=== PATIENT | male | born 1940 | race Caucasian/White ===

== ENCOUNTER 2017-05-08 11:38 | Day surgery (SDC) | payer BC ==
--- NOTE | 2017-05-08 06:29 | History and Physical Report ---
DATE: 05/08/2017. CHIEF COMPLAINT: This is a patient with a history of an intractable postlaminectomy radiculitis. HISTORY OF PRESENT ILLNESS: He had a spinal cord stimulator trial on April 08, 2017, with 75 to 90 percent pain control. Due to the failure of all therapies and the success of the trial, he presents today for implantation of a permanent system. PAST MEDICAL HISTORY: Chronic peripheral vascular disease, abdominal aortic aneurysm, intractable back pain. PAST SURGICAL HISTORY: Skin cancer tumor removals, aneurysm repair, hernia repair, lumbar spinal fusion, cataract surgery, sinus surgery, coronary artery stent placement. MEDICATIONS ON ADMISSION: To be provided ALLERGIES: Naproxen, aspirin, Advil. FAMILY/PSYCHOSOCIAL HISTORY: Noncontributory. Caffeine. PHYSICAL EXAMINATION: General: Height is 5 feet, 4 inches. Weight is 140 pounds. Vital Signs: Not available. HEENT: Within normal limits. Lungs: Clear. Heart: Regular rate and rhythm. Abdomen: Nontender. Musculoskeletal: Musculoskeletal examination shows diffuse tenderness throughout the lumbar spine. Range of motion produces primary pain into the left lower extremity. Ambulation: No assistive device utilized. Neurologic: Cranial nerves are intact. IMPRESSION: 1. POSTLUMBAR LAMINECTOMY SYNDROME, ICD-10 CODE M96.1. 2. LUMBAR RADICULITIS, ICD-10 CODE M54.16 AND M54.17. PLAN: Due to the failure of all other therapies and the success of the spinal cord stimulator trial, the patient presents today for implantation of a permanent system. The potential risks, side effects, and complications have all been reviewed including nerve tract trauma, dural puncture, spinal trauma, and spinal cord injury. The potential risks, side effects, and complications have been accepted. He has read all of the appropriate information provided by the boom cat operator which also outlines the risks. He has consented and is moving forward with the implant. We will consider today's procedure outpatient, although an overnight stay will be evaluated. JOSH LANDA D.O. Date & Time JOB NUMBER: [id number] cc: Brittany Corbett
[~2017-05-08 11:38] MED LIST: ACETAMINOPHEN 1,000 MG/100 ML BTL IV ONE; CEFAZOLIN 2 Gram 2 GM/50 ML BAG IVPB ONE; FAMOTIDINE 20MG TABLET PO ONE; MECLIZINE 25 MG TABLET PO ONE; METOCLOPRAMIDE 10 MG TABLET PO ONE
[2017-05-08] MEDS ORDERED: FLUMAZENIL 1MG/10ML VIAL IV ONE (14:00)
[2017-05-08] MEDS ORDERED: MIDAZOLAM HCL 2MG/2ML VIAL IV ONE (14:00)
[2017-05-08] MEDS ORDERED: LIDOCAINE 2% MDV (20MG/ML) 20ML VIAL IV ONE (14:00)
[2017-05-08] MEDS ORDERED: EPHEDRINE SULFATE 50 MG/ML ML IV ONE (14:00)
[2017-05-08] MEDS ORDERED: PROPOFOL 10 MG/ML VIAL IV ONE (14:00)
[2017-05-08] MEDS ORDERED: FENTANYL PF 100MCG/2ML VIAL IV ONE (14:00)
--- NOTE | 2017-05-08 16:33 | Operative Note - Ferro ---
DATE OF SURGERY: 05/08/17 PREOPERATIVE DIAGNOSES: 1. POST LUMBAR LAMINECTOMY SYNDROME, ICD-10 CODE = M96.1. 2. LUMBAR RADICULITIS, ICD-10 CODE = M54.16 AND M54.17. OPERATION: 1. FLUOROSCOPICALLY-GUIDED EPIDURAL ACCESS T10/11 RIGHT OF THE MIDLINE. PLACEMENT OF SPINAL CORD STIMULATOR LEAD 1, A [employer] OCTAPOLAR WITH 8 ELECTRODES, MRI COMPATIBLE, POSITIONED RIGHT T8. 2. COMPLEX PROGRAMMING LEAD 1, 20 MINUTES. 3. FLUOROSCOPICALLY-GUIDED EPIDURAL ACCESS T11/12 RIGHT, PLACEMENT OF SPINAL CORD STIMULATOR LEAD 2 A [employer] OCTAPOLAR 8 ELECTRODES, MRI COMPATIBLE, POSITIONED LEFT T8. 4. COMPLEX PROGRAMMING LEAD 2, 20 MINUTES. 5. INCISION, SUBCUTANEOUS DISSECTION, AND ANCHORING OF LEAD 1 AND LEAD 2 TO SUPRASPINOUS FASCIA USING [employer] LOCKING ANCHOR. 6. INCISION, SUBCUTANEOUS DISSECTION, AND CREATION OF A SUBCUTANEOUS POUCH AT RIGHT FLANK ABOVE BELT LINE FOR GENERATOR IDENTIFIED [employer] PROGRAMMABLE RECHARGEABLE. 7. TUNNELING BETWEEN POUCHES, PLACEMENT OF EXTERNAL PORTION OF LEAD 1 AND LEAD 2 INTO GENERATOR POUCH, EACH LEAD INTERFACED TO GENERATOR. 8. PLACEMENT OF GENERATOR POUCH SECURING TO FASCIA WITH NONABSORBABLE SUTURE. PLACEMENT OF LEADS INTO POUCH. CLOSURE OF INCISIONS VICRYL FOR FASCIA AND SUBCUTICULAR VICRYL FOR SKIN. DERMABOND CLOSURE SYSTEM APPROXIMATING EDGES OF THE WOUND. 9. COMPLEX RECOVERY ROOM PROGRAMMING INTERNAL GENERATOR HOME USE, TWO STIMULATORS, 20 MINUTES. SURGEON: JOSH LANDA D.O. ANESTHESIA: LOCAL SEDATION. ANESTHESIA PROVIDER: HAYDE WATERS CRNA. INDICATION: This patient presents with a history of a intractable postlaminectomy radiculitis. Due the failure of all therapies, a stimulator trial was conducted with 75-90% pain control. Due to the failure of all therapies and success of the stimulator trial, he presents today for implantation of a permanent system. PROCEDURE: Intravenous line, vital sign monitoring, IV sedation, prepped, draped sterile technique, patient position prone. The epidural interspace right of the midline at 10/11 and 11/12 both infiltrated. Two standard needles with [id number] into the epidural space. At 10/11, spinal cord stimulator lead 1, a [employer] Octapolar 8 electrodes MRI compatible positioned right of midline T8l. With epidural access at T11/12, standard needle, loss-of- resistance, spinal cord stimulator lead 2, a [employer] Octapolar 8 electrodes MRI compatible, positioned left of midline T8. Complex programming of lead 1 over 20 minutes followed by complex programming of lead 2 over 20 minutes ultimately resulting in patterns of stimulation across the back and into the legs. Patient indicating we were in all of the areas of the pain. He was given the option to implant the system, continue to program, or remove the system; he opted to implant the system. All questions were repeated with the same response. He was then re-sedated. The skin was then infiltrated with local , incision made, and subcutaneous dissection was conducted to the supraspinous fascia. The needles were removed and each lead was anchored to the supraspinous fascia using [employer] [place] with nonabsorbable suture. At the right flank, site picked for the generator, skin infiltrated, incision made, and subcutaneous dissection was conducted to form a pouch of suitable size and depth for the generator. A tunneling tool was used to carry the leads into the generator pouch and then each lead was interfaced to the generator. Antibiotic irrigation and Bovie for hemostasis. The generator was then placed into the pouch and secured to the fascia with nonabsorbable suture. The two leads were then coiled and placed into their own pouch and both incisions were closed Vicryl for fascia and running subcuticular Vicryl for skin. A Dermabond closure approximating the edges of both wounds. He was then transported to the Recovery Room stable showing no side-effects from the procedure or the sedation. When fully awake and alert, complex programming was then performed in the Recovery Room over 20 minutes, re-establishing stimulation and pain control to all of the appropriate areas. He was instructed on the use of the system. He will be kept for standard monitoring protocol and then overnight for observation. DISCHARGE INSTRUCTIONS IN THE MORNIN. The sites will remain clean and dry. Although the Dermabond will allow showering, this should not happen for 12-24 hours. 2. Standard medications resumed including the antibiotic, Levaquin 500 mg once a day for 14 days. If he does not tolerate the antibiotic, he should contact the clinic for substitution. 3. His activities should remain low for the next 3-5 days. The office will contact him in 2-3 to set up an appointment in - for site checks. At that point, he will be cleared for more activities. All other instructions provided, numbers to contact, problems given. He will then be discharged. cc: Dr. Favian Bone JOB NUMBER: [id number] MTDD
[2017-05-08] MEDS ORDERED: LIDOCAINE 1% W/EPI 1:200,000 MPF 30ML SQ ONE (16:50)
[2017-05-08] MEDS ORDERED: BUPIVACAINE 0.5% W/EPI MPF 30 ML VIAL IVP ONE (16:50)
[2017-05-08] MEDS ORDERED: CEFAZOLIN 1G VIAL IM ONE (16:50)
--- NOTE | 2017-05-09 12:39 | RADIOLOGY REPORT ---
EXAM: THORACOLUMBAR SPINE, ONE VIEW HISTORY: SPINAL STIMULATOR IMPLANT. TECHNIQUE: A single AP supine view of the mid to lower thoracic and lumbar portions of the spine were obtained portably. Comparison: Same day intraoperative radiographs. FINDINGS: A dual lead interspinal stimulator is in place with the leads likely entering the spinal canal at the T12 or L1 level, right of midline. The lead tips are at the inferior T7 level. There is diffuse osteopenia. Moderate levoconvex scoliosis is present centered at the L1-L2 level. Multilevel degenerative disk and facet degenerative changes are present. An aortobiiliac stent graft is in place. IMPRESSION: 1. DUAL LEAD INTERSPINAL STIMULATOR IN PLACE, DETAILED ABOVE. 2. MULTILEVEL DEGENERATIVE CHANGES OF THE SPINE ASSOCIATED WITH MODERATE LEVOCONVEX SCOLIOSIS CENTERED AT THE L1-L2 LEVEL. 3. NOT MENTIONED ABOVE IS POSTERIOR FUSION OF L3 AND L4. JOB NUMBER: [id number] MTDD
== END 2017-05-08 16:10 | disposition home or self-care (01) ==
LOC: SUR 11:38 → MEDSURG 14:56 → SUR 16:10
PROVIDERS: ATTEND Pain Medicine Interventional Pain Medicine
DX: M96.1 Postlaminectomy syndrome, not elsewhere classified (principal); M54.16 Radiculopathy, lumbar region; M54.17 Radiculopathy, lumbosacral region; I10 Essential (primary) hypertension; E78.00 Pure hypercholesterolemia, unspecified; J44.9 Chronic obstructive pulmonary disease, unspecified
CPT/HCPCS: 63685; 63650 ×2; 00300; 95972; 72020; J3010; J0690

== ENCOUNTER 2019-01-14 10:59 | Observation (INO) | payer BC ==
--- NOTE | 2019-01-14 07:01 | History and Physical - Ferro ---
CHIEF COMPLAINT/HISTORY OF CHIEF COMPLAINT: This patient presents with a history of intractable post laminectomy radiculopathy. Due to the failure of therapy, he is here for an implanted spinal catheter and infusion trial with Hydromorphone to determine if the implantation of a permanent system can be of any value in pain control. PAST MEDICAL HISTORY: Intractable chronic vascular disease with an abdominal aortic aneurysm and post laminectomy syndrome. PAST SURGICAL HISTORY: Skin cancer, basal cell cancer, aneurysm repair, hernia repair, lumbar spinal fusion, cataract surgery, sinus surgery, and coronary artery stent placement. MEDICATIONS ON ADMISSION: List to be provided. ALLERGIES: None listed. FAMILY/PSYCHOSOCIAL HISTORY: Family history - Noncontributory. Social history - Caffeine. SYSTEMS REVIEW: The patient is appropriate in no acute distress. PHYSICAL EXAMINATION: Height is 5'4", weight is 140. No vital signs. HEENT: Within normal limits. LUNGS: Clear. HEART: Rapid and regular. ABDOMEN: Nontender. MUSCULOSKELETAL: Examination of the musculoskeletal system shows diffuse tenderness throughout the lumbar spine. Range of motion produces pain throughout the low back and extending into both lower extremities. Motor and sensory field evaluation shows sensory changes across the front and back surface of both legs with weakness into both legs. Ambulation - An assistive device is utilized. NEUROLOGIC: Cranial nerves are intact. IMPRESSION: POST LUMBAR LAMINECTOMY SYNDROME, ICD-10 CODE M96.1 WITH RADICULOPATHY, ICD-10 CODE M54.16 AND M54.17. PLAN: The patient is here for an implanted spinal catheter infusion trial using Hydromorphone to determine if the implantation of a permanent system can be of any value in pain control. The procedure will be considered outpatient, although an overnight stay will be evaluated. A possible epidural blood patch will be performed although his hardware fusion may present the procedure. JOB NUMBER: [id number] [facility]
[~2019-01-14 10:59] MED LIST changes: +HYDROMORPHONE PF 2MG/ML AMP 0.008 MG in 0.9 % SODIUM CHLORIDE 10ML VIA 0.996 ML IV ONE; +HYDROMORPHONE PF 2MG/ML AMP 8 MG in 0.9 % SODIUM CHLORIDE 500ML 496 ML IV ONE
[2019-01-14] MEDS ORDERED: CEFAZOLIN 1G VIAL IM ONE (11:00)
[2019-01-14] MEDS ORDERED: 0.9 % SODIUM CHLORIDE 10 ML VIAL IVP ONE (11:00)
[2019-01-14] MEDS ORDERED: FENTANYL PF 100MCG/2ML VIAL IV ONE (11:00)
[2019-01-14] MEDS ORDERED: CAFFEINE/SODIUM BENZOATE 250MG/ML 2ML VIAL IVP ONE (11:00)
[2019-01-14] MEDS ORDERED: PROPOFOL 10 MG/ML VIAL IV ONE (11:00)
[2019-01-14] MEDS ORDERED: LIDOCAINE 1% W/EPI 1:200,000 MPF 30ML SQ ONE (11:00)
[2019-01-14] MEDS ORDERED: LIDOCAINE 2% MDV (20MG/ML) 20ML VIAL IV ONE (11:00)
[2019-01-14] MEDS ORDERED: BUPIVACAINE 0.5% W/EPI MPF 30 ML VIAL IVP ONE (11:00)
[2019-01-14] MEDS ORDERED: MIDAZOLAM HCL 2MG/2ML VIAL IV ONE (11:00)
[2019-01-14] MEDS ORDERED: DIPHENHYDRAMINE HCL 50 MG/ML VIAL IVP PRN ×2 (15:06)
[2019-01-14] MEDS ORDERED: HYDROMORPHONE HCL 2 MG/ML VIAL IM PRN ×2 (15:06)
[2019-01-14] MEDS ORDERED: DIPHENHYDRAMINE HCL 25 MG CAPSULE PO PRN ×2 (15:06)
[2019-01-14] MEDS ORDERED: SENNOSIDES/DOCUSATE SODIUM UD CAPSULE PO PRN ×2 (15:06)
[2019-01-14] MEDS ORDERED: HYDROCODONE/APAP 7.5/325MG TABLET PO PRN (15:06)
[2019-01-14] MEDS ORDERED: METOCLOPRAMIDE 10 MG TABLET PO PRN (15:06)
[2019-01-14] MEDS ORDERED: ACETAMINOPHEN 325 MG TAB PO PRN ×2 (15:06)
[2019-01-14] MEDS ORDERED: OXYCODONE/APAP 10MG-325MG TABLET PO PRN ×2 (15:06)
[2019-01-14] MEDS ORDERED: METOCLOPRAMIDE HCL 10 MG/2 ML VIAL IVP PRN (15:06)
[2019-01-14] MEDS ORDERED: NALOXONE 0.4 MG/1 ML VIAL IVP PRN (15:06)
[2019-01-14] MEDS ORDERED: AL HYDROX/MAG HYDROX 30ML UD PO PRN (15:06)
[2019-01-14] MEDS ORDERED: PATIENT OWN MED: PROAIR HFA INH PRN (15:10)
[2019-01-14] MEDS: LISINOPRIL 10 MG TABLET PO SCH (15:37)
[2019-01-14] MEDS: HYDROCODONE/APAP 7.5/325MG TABLET PO PRN ×2 (15:38→22:05)
[2019-01-14] MEDS: SERTRALINE HCL 50 MG TABLET PO SCH (15:38)
[2019-01-14] MEDS: ALBUTEROL SULFATE (0.083%) 2.5 MG/3 ML NEB INH SCH ×2 (17:15→21:18)
[2019-01-14] MEDS: BREO (FLUTICASONE/VILANTEROL) 200MCG/25MCG INHALER INH SCH (21:20)
[2019-01-14] MEDS: TAMSULOSIN HCL 0.4 MG CAP.ER.24H PO SCH (22:00)
[2019-01-14] MEDS: ATORVASTATIN 20 MG TABLET PO SCH (22:00)
[2019-01-14] MEDS: CEFAZOLIN 2 Gram 2 GM/50 ML BAG IVPB SCH (22:00)
[2019-01-14] MEDS: TEMAZEPAM 15 MG CAPSULE PO PRN (22:04)
[2019-01-15] MEDS: HYDROCODONE/APAP 7.5/325MG TABLET PO PRN ×5 (00:40→20:42)
[2019-01-15] MEDS: TEMAZEPAM 15 MG CAPSULE PO PRN ×2 (00:41→22:00)
[2019-01-15] MEDS: CEFAZOLIN 2 Gram 2 GM/50 ML BAG IVPB SCH ×2 (05:46→14:44)
[2019-01-15] MEDS: LORAZEPAM 0.5 MG TABLET PO PRN ×2 (07:16→14:43)
[2019-01-15] MEDS: PREDNISONE 10 MG TAB PO SCH (08:08)
[2019-01-15] MEDS: LISINOPRIL 10 MG TABLET PO SCH (09:15)
[2019-01-15] MEDS: SERTRALINE HCL 50 MG TABLET PO SCH (09:15)
[2019-01-15] MEDS: ALBUTEROL SULFATE (0.083%) 2.5 MG/3 ML NEB INH SCH ×3 (09:22→21:40)
[2019-01-15] MEDS: RINGERS SOLUTION,LACTATED 1,000 ML IV SCH ×4 (14:51→23:25)
--- NOTE | 2019-01-15 17:11 | Operative Note ---
DATE OF SURGERY: 01/14/19 PREOPERATIVE DIAGNOSES: POST LUMBAR LAMINECTOMY SYNDROME, ICD-10 CODE = M96.1 WITH RADICULOPATHY, ICD- 10 CODE = M54.16 AND M54.17. OPERATION: 1. FLUOROSCOPICALLY-GUIDED ACCESS SPINAL SPACE AT L3-4. PLACEMENT OF THIN- WALLED SPINAL CATHETER POSITIONED MIDLINE T11-12. 2. DIAGNOSTIC MYELOGRAPHY WITH RADIOLOGIC SUPERVISION INTERPRETATION. 3. BOLUS OPIOID SPINAL SPACE 0.002 MG. 4. INCISION, SUBCUTANEOUS DISSECTION AND ANCHORING OF SPINAL CATHETER TO SUPRASPINOUS FASCIA WITH A [employer] LOCKING ANCHOR AND NONABSORBABLE SUTURE. 5. INCISION, SUBCUTANEOUS DISSECTION, AND CREATION OF SUBCUTANEOUS POUCH AT LEFT POSTERIOR GLUTEAL MARGIN ULTIMATELY FOR PLACEMENT OF PUMP FORMATION OF SMALL SUBCUTANEOUS POUCH. 6. TUNNELING BETWEEN MIDLINE SPINAL CATHETER LOCATION TO LEFT POSTERIOR GLUTEAL MARGIN POUCH EXTENDING SPINAL CATHETER INTO POUCH. INTERFACE SPINAL CATHETER WITH CONNECTOR AND SECOND CATHETER COMPONENT. 7. TUNNELING SECOND CATHETER COMPONENT 6 CM SUPERIOR EXITING SKIN. 8. INTERFACE EXTERNAL CATHETER TO EXTERNAL PUMP SET TO DELIVER HYDROMORPHONE AT 0.04 MG A DAY. 9. APPROPRIATE DRESSINGS PLACED. NO EPIDURAL BLOOD PATCH, ABORTED BECAUSE OF POOR ANATOMY. EXTERNAL PUMP SET TO DELIVER HYDROMORPHONE WAS INITIATED. SURGEON: JOSH LANDA D.O. ANESTHESIA: LOCAL SEDATION. ANESTHESIA PROVIDER: HAYDE WATERS CRNA INDICATION: This patient presents with a history of intractable post lumbar laminectomy radiculopathy. Due to failure of all therapies, he is here for an implanted spinal catheter infusion trial with Hydromorphone to determine if the implantation of a permanent system can be of any value in pain control. PROCEDURE: Intravenous line, vital sign monitoring, IV sedation, prepped and draped sterile technique. Patient position prone. Under imaging, the spinal fusion was marked, decompression laminectomy marked, rotational scoliosis marked. The skin at L3-4 infiltrated then using AP and lateral imaging in a paramedian approach, a 20-gauge spinal needle inserted into the spinal space on lateral imaging. With CSF flow, a thin-walled spinal catheter was advanced midline under imaging and positioned T11-12. Diagnostic myelography performed, flow characteristics were appropriate for this space. No unusual response on part of the patient and appropriate flow characteristics visualized. With this bolus of Hydromorphone at 0.002 mg given into the spinal space, the catheter was clamped to stop CSF leak. Skin above and below the needle infiltrated, incision made, and subcutaneous dissection was conducted to the supraspinous fascia. The needle was removed and the catheter was anchored to the supraspinous fascia with an anchoring device and nonabsorbable suture. There was still CSF from the catheter. The left posterior gluteal margin was marked, infiltrated, incision made, and subcutaneous dissection was conducted to form a small pouch. A tunneling tool was then used to carry the spinal catheter into the small pouch and then the spinal catheter was interfaced with a second catheter component within the pouch by way of a connector. The second catheter component was then tunneled 6 cm superior exiting the skin. The external catheter was then interfaced to an external pump, which was set to deliver Hydromorphone at 0.04 mg a day. The left posterior gluteal incision was closed with a running nylon. The midline catheter incision was closed with STRATAFIX suture 2-0 fascia, 3-0 skin. 4x4s and OpSite dressing were then used to secure the catheter and all connections under sterile dressing. The external catheter had been interfaced to an external pump, which was running at 0.04 mg a day. No epidural blood patch was performed because of the extensive surgery and abnormalities of the anatomy. He was transported to the Recovery Room flat, pillow under head and knees. He will be kept flat for 4, slowly elevated for 1. He will be given intravenous caffeine as a prophylactic measure against the headache. He will be monitored overnight and then discharged in the morning. Currently, he is stable. There are no unusual movements. No unusual pain. He had full functionality of extremities. DISCHARGE INSTRUCTIONS IN THE MORNIN. Sites remain clean and dry. No showering or bathing in any way that would disrupt dressings. If it happens, contact the clinic. 2. Standard medications resumed including the antibiotic Levaquin. He will take 500 mg once a day for 14 days. 3. The trial is scheduled for 14 days. During this period of time, we will schedule three increases. At the end of the trial period, we will either remove the implanted catheter or implant the pump interfacing it to the catheter. All other instructions provided, numbers to contact, problems given. He will then be prepared for discharge in the morning. cc: Dr. Favian Bone JOB NUMBER: [id number] [facility]
[2019-01-15] MEDS: BREO (FLUTICASONE/VILANTEROL) 200MCG/25MCG INHALER INH SCH (21:40)
[2019-01-15] MEDS: ATORVASTATIN 20 MG TABLET PO SCH (22:00)
[2019-01-15] MEDS: TAMSULOSIN HCL 0.4 MG CAP.ER.24H PO SCH (22:00)
[2019-01-16] MEDS: HYDROCODONE/APAP 7.5/325MG TABLET PO PRN ×5 (05:35→23:04)
[2019-01-16] MEDS: SERTRALINE HCL 50 MG TABLET PO SCH (10:19)
[2019-01-16] MEDS: PREDNISONE 10 MG TAB PO SCH (10:20)
[2019-01-16] MEDS: LISINOPRIL 10 MG TABLET PO SCH (10:20)
[2019-01-16] MEDS: ALBUTEROL SULFATE (0.083%) 2.5 MG/3 ML NEB INH SCH ×3 (10:24→23:12)
[2019-01-16] MEDS: POLYETHYLENE GLY 17 GM PACKET PO SCH (11:19)
--- NOTE | 2019-01-16 11:49 | Consult ---
Consult Order Detail - Reason for Consult Consult Date: 01/16/19 Consult Order Detail: Urinary retention s/p pain pump placement. Pt has PMH TURP and prolong need for alvarez catheter in the past. Sees Dr Mclean urology. - Chief Complaint Chief Complaint: POST LUMBAR LAMINECTOMY HPI Consult - General Complaint: urinary retention - History of Present Illness Admitting Diagnosis: urinary retention post-surgery ROS - Respiratory Respiratory: Reports: Wheezes - Genitourinary Genitourinary: Reports: Retention, Other (h/o BPH req TURP) Past Medical History - SOCIAL HISTORY Smoking Status: Former smoker Alcohol Use: None - RESPIRATORY Hx Respiratory Disorders: Yes Hx Asthma: Yes Hx COPD: Yes (RESPIRATORY STATUS FAIR NO RECENT HOSPITALIZATIONS) Hx Dyspnea: Yes Comment:: prednisone dependent - CARDIOVASCULAR Hx Cardio Disorders: Yes Hx Edema: Yes (rarely) Hx Hypertension: Yes (ON MEDS GOOD CONTROL) Comment:: HYPERLIPIDEMIA found AAA on MRI for back issues STABLE - NEURO Hx Neuro Disorders: No - GI Hx GI Disorders: No - Hx Genitourinary Disorders: Yes Hx Bladder Problem: Yes (ON FLOMAX) Hx Kidney Stones: Yes (hx of; ? possible small stones in kidneys) Hx Prostate Problems: Yes (h/o BPH with TURP) Hx UTI: Yes (HX OF) - ENDOCRINE Hx Endocrine Disorders: No - MUSCULOSKELETAL Hx Musculoskeletal Disorders: Yes Hx Arthritis: Yes (DDD) - PSYCH Hx Psych Problems: Yes Hx Anxiety: Yes Hx Depression: Yes Hx Suicide Attempt: Yes (2 YEARS AGO) Major Depressive Episode: Yes - HEMATOLOGY/ONCOLOGY Hx Hematology/Oncology Disorders: Yes Hx Cancer: Yes (skin; face) Family Medical History Hx Cancer: Mother H&P Meds - Home Medications and Allergies Allergies Allergy/AdvReac Type Severity Reaction Status Date / Time aspirin Allergy SHORTNESS Verified 05/02/17 13:28 OF BREATH NSAIDS (Non-Steroidal Allergy SHORTNESS Verified 05/02/17 13:28 Anti-Inflamma OF BREATH Physical Exam - Vital Signs Vital Signs: Vital Signs - Last 24 Hrs Temp Pulse Pulse Pulse Resp BP Pulse Ox 01/16/19 10:25 81 18 95 01/16/19 05:00 97.7 F 86 18 176/110 97 01/15/19 21:47 77 18 97 01/15/19 21:43 79 18 97 01/15/19 21:00 97.9 F 78 18 163/106 94 L 01/15/19 17:00 97.6 F 83 18 153/85 93 L 01/15/19 15:51 80 18 97 01/15/19 13:00 84 16 138/87 95 - General General Appearance: Alert, Oriented x3, Cooperative, No acute distress - Head Head exam: Atraumatic - Eye Eye exam: Normal appearance - ENT ENT exam: Mucous membranes moist - Neck Neck exam: Normal inspection - Respiratory Respiratory exam: Decreased breath sounds, Wheezes - GI/Abdominal GI/Abdominal exam: Normal bowel sounds Assessment and Plan - Assessment and Plan (1) Urinary retention Current Visit: Yes Status: Acute Base Code: R33.9 - RETENTION OF URINE, UNSPECIFIED Comment: 01/16/19 -S/P pain pump placement with spinal dilaudid bolus and infusion by Dr Kincaid -post op urinary retention req alvarez placement -Spoke with miguel Jacob to manage urinary retention for the next 24 hours, POC d/c with or without alvarez based on 24 ISC trial and increase in flomax from 0.4mg to 0.8mg (pt BP elevated and should tolerate the increase). Alvarez was removed 9am, pt not successful to urinate on his own yet. P to stand and attempt to urinate q2 hours while awake and ISC q 6 hours if bladder scan greater than 400cc. If after 24 hours, pt is not able to urinate on his own, alvarez will be replaced and pt will f/u with Dr Vinay lynne (this is his current urologist). PMH of BPH requiring TURP and 5 months of alvarez catheter placement after procedure. Care Coodinator to set up f/u for urology. Pt and updated with POC.
[2019-01-16] MEDS: TAMSULOSIN HCL 0.4 MG CAP.ER.24H PO SCH (13:23)
[2019-01-16] MEDS: ATORVASTATIN 20 MG TABLET PO SCH (23:05)
[2019-01-16] MEDS: TEMAZEPAM 15 MG CAPSULE PO PRN (23:07)
[2019-01-16] MEDS: BREO (FLUTICASONE/VILANTEROL) 200MCG/25MCG INHALER INH SCH (23:12)
[2019-01-17] MEDS: HYDROCODONE/APAP 7.5/325MG TABLET PO PRN ×2 (04:26→07:25)
[2019-01-17] MEDS: SERTRALINE HCL 50 MG TABLET PO SCH (09:36)
[2019-01-17] MEDS: LISINOPRIL 10 MG TABLET PO SCH (09:37)
[2019-01-17] MEDS: TAMSULOSIN HCL 0.4 MG CAP.ER.24H PO SCH (09:37)
[2019-01-17] MEDS: LORAZEPAM 0.5 MG TABLET PO PRN (09:37)
[2019-01-17] MEDS: ALBUTEROL SULFATE (0.083%) 2.5 MG/3 ML NEB INH SCH (10:10)
[2019-01-17] MEDS: POLYETHYLENE GLY 17 GM PACKET PO SCH (10:15)
[2019-01-17] MEDS: PREDNISONE 10 MG TAB PO SCH (10:17)
--- NOTE | 2019-01-17 10:38 | Physician Progress Note ---
Subjective - Date Date of Physician Progress Note: 01/17/19 - Subjective Subjective Comment: pt has been able to urinate on his own since the late evening, assurance services manager health care. PVR scan shows 100cc or less. Pt denies sensation of full bladder and has a urology follow up already scheduled. Pt to see Dr Kincaid saturday for follow up on pain pump placement. Nursing staff educating pt to go to ER if he is unable to urinate in 18-24 hours or has severe onset of lower abd pain/distention. Dr Kincaid d/robert completed Objective - Vital Signs Vital Signs: Vital Signs - Last 24 Hrs Temp Pulse Pulse Pulse Resp BP BP 01/17/19 07:55 72 20 01/17/19 04:24 98.7 F 82 16 120/82 01/16/19 23:16 98.0 F 77 16 140/90 01/16/19 23:14 78 16 01/16/19 17:08 78 18 01/16/19 17:00 99.0 F 87 18 128/75 01/16/19 13:00 97.9 F 81 16 148/91 Pulse Ox 01/17/19 07:55 01/17/19 04:24 94 L 01/16/19 23:16 99 01/16/19 23:14 96 01/16/19 17:08 99 01/16/19 17:00 98 01/16/19 13:00 93 L - General General Appearance: Alert, Oriented x3, Cooperative, No acute distress - Head Head exam: Atraumatic - Eye Eye exam: Normal appearance - ENT ENT exam: Mucous membranes moist - Neck Neck exam: Normal inspection - Respiratory Respiratory exam: Decreased breath sounds, Wheezes - GI/Abdominal GI/Abdominal exam: Normal bowel sounds Assessment and Plan - Assessment and Plan (1) Urinary retention Current Visit: Yes Status: Acute Base Code: R33.9 - RETENTION OF URINE, UNSPECIFIED Comment: 01/16/19 -S/P pain pump placement with spinal dilaudid bolus and infusion by Dr Kincaid -post op urinary retention req alvarez placement -Spoke with miguel Jacob to manage urinary retention for the next 24 hours, POC d/c with or without alvarez based on 24 ISC trial and increase in flomax from 0.4mg to 0.8mg (pt BP elevated and should tolerate the increase). Alvarez was removed 9am, pt not successful to urinate on his own yet. P to stand and attempt to urinate q2 hours while awake and ISC q 6 hours if bladder scan greater than 400cc. If after 24 hours, pt is not able to urinate on his own, alvarez will be replaced and pt will f/u with Dr Vinay lynne (this is his current urologist). PMH of BPH requiring TURP and 5 months of alvarez catheter placement after procedure. Care Coodinator to set up f/u for urology. Pt and updated with POC. DVT/PE Assessment - Active Medicaitons Current Medications: Current Medications Acetaminophen (Tylenol 325mg) 325 mg PO Q4H PRN PRN Reason: PAIN/HEADACHE/TEMP>100.5 Last Admin: 01/16/19 11:16 Dose: 325 mg Acetaminophen (Tylenol 325mg) 650 mg PO Q4H PRN PRN Reason: PAIN/HEADACHE/TEMP>100.5 Hydrocodone Bitart/Acetaminophen ([place] 7.5mg/325mg) 1 each PO Q4H PRN PRN Reason: PAIN - MILD TO MODERATE (1-7) Last Admin: 01/17/19 07:25 Dose: 1 each Al Hydroxide/Mg Hydroxide (Maalox) 30 ml PO Q4H PRN PRN Reason: INDIGESTION/HEARTBURN Albuterol Sulfate (Albuterol Sulfate) 2.5 mg INH TID [facility] Last Admin: 01/17/19 10:10 Dose: 2.5 mg Atorvastatin Calcium (Lipitor) 20 mg PO QHS [facility] Last Admin: 01/16/19 23:05 Dose: 20 mg Diphenhydramine HCl (Benadryl) 25 mg IVP Q4H PRN PRN Reason: ITCHING Diphenhydramine HCl (Benadryl) 50 mg IVP Q4H PRN PRN Reason: ITCHING Diphenhydramine HCl (Benadryl Capsule) 25 mg PO Q4H PRN PRN Reason: ITCHING Diphenhydramine HCl (Benadryl Capsule) 50 mg PO Q4H PRN PRN Reason: ITCHING Lactated Ringer's () 1,000 mls @ 125 mls/hr IV .Q8H [facility] Last Admin: 01/15/19 23:25 Dose: Not Given Lisinopril (Zestril) 10 mg PO DAILY [facility] Last Admin: 01/17/19 09:37 Dose: 10 mg Lorazepam (Ativan) 0.5 mg PO BID PRN PRN Reason: ANXIETY Last Admin: 01/17/19 09:37 Dose: 0.5 mg Metoclopramide HCl (Reglan) 10 mg PO Q6H PRN PRN Reason: NAUSEA Metoclopramide HCl (Reglan) 10 mg IVP Q6H PRN PRN Reason: NAUSEA Naloxone HCl (Narcan) 0.4 mg IVP .ONCE PRN PRN Reason: DIFFICULTY IN BREATHING Patient Own Med: (Proair Hfa) 2 each INH Q4H PRN PRN Reason: SHORTNESS OF BREATH Polyethylene Glycol (Miralax) 17 gm PO DAILY [facility] Last Admin: 01/17/19 10:15 Dose: 17 gm Prednisone (Prednisone 10mg) 10 mg PO DAILYWM [facility] Last Admin: 01/17/19 10:17 Dose: 10 mg Senna/Docusate Sodium (Senna Plus) 2 each PO BID PRN PRN Reason: CONSTIPATION Senna/Docusate Sodium (Senna Plus) 4 each PO BID PRN PRN Reason: CONSTIPATION Sertraline HCl (Zoloft) 50 mg PO DAILY [facility] Last Admin: 01/17/19 09:36 Dose: 50 mg Tamsulosin HCl (Flomax) 0.8 mg PO DAILY [facility] Last Admin: 01/17/19 09:37 Dose: 0.8 mg Temazepam (Restoril) 15 mg PO QHS PRN PRN Reason: SLEEP Last Admin: 01/15/19 00:41 Dose: 15 mg Temazepam (Restoril) 30 mg PO QHS PRN PRN Reason: SLEEP Last Admin: 01/16/19 23:07 Dose: 30 mg
--- NOTE | 2019-01-17 10:39 | Consult ---
Consult Order Detail - Reason for Consult Consult Date: 01/17/19 Consult Order Detail: pt has been able to urinate on his own since the late evening, lacquer coater. PVR scan shows 100cc or less. Pt denies sensation of full bladder and has a urology follow up already scheduled. Pt to see Dr Kincaid saturday for follow up on pain pump placement. Nursing staff educating pt to go to ER if he is unable to urinate in 18-24 hours or has severe onset of lower abd pain/distention. Dr Kincaid d/c completed - Chief Complaint Chief Complaint: POST LUMBAR LAMINECTOMY HPI Consult - History of Present Illness Admitting Diagnosis: urinary retention ROS - Respiratory Respiratory: Reports: Wheezes - Genitourinary Genitourinary: Reports: Retention, Other (h/o BPH req TURP) Past Medical History - SOCIAL HISTORY Smoking Status: Former smoker Alcohol Use: None - RESPIRATORY Hx Respiratory Disorders: Yes Hx Asthma: Yes Hx COPD: Yes (RESPIRATORY STATUS FAIR NO RECENT HOSPITALIZATIONS) Hx Dyspnea: Yes Comment:: prednisone dependent - CARDIOVASCULAR Hx Cardio Disorders: Yes Hx Edema: Yes (rarely) Hx Hypertension: Yes (ON MEDS GOOD CONTROL) Comment:: HYPERLIPIDEMIA found AAA on MRI for back issues STABLE - NEURO Hx Neuro Disorders: No - GI Hx GI Disorders: No - Hx Genitourinary Disorders: Yes Hx Bladder Problem: Yes (ON FLOMAX) Hx Kidney Stones: Yes (hx of; ? possible small stones in kidneys) Hx Prostate Problems: Yes (h/o BPH with TURP) Hx UTI: Yes (HX OF) - ENDOCRINE Hx Endocrine Disorders: No - MUSCULOSKELETAL Hx Musculoskeletal Disorders: Yes Hx Arthritis: Yes (DDD) - PSYCH Hx Psych Problems: Yes Hx Anxiety: Yes Hx Depression: Yes Hx Suicide Attempt: Yes (2 YEARS AGO) Major Depressive Episode: Yes - HEMATOLOGY/ONCOLOGY Hx Hematology/Oncology Disorders: Yes Hx Cancer: Yes (skin; face) Family Medical History Hx Cancer: Mother H&P Meds - Home Medications and Allergies Previous Rx's Medication Instructions Recorded Tamsulosin HCl [Flomax] 0.8 mg PO DAILY #15 cap.er.24h 01/17/19 Allergies Allergy/AdvReac Type Severity Reaction Status Date / Time aspirin Allergy SHORTNESS Verified 05/02/17 13:28 OF BREATH NSAIDS (Non-Steroidal Allergy SHORTNESS Verified 05/02/17 13:28 Anti-Inflamma OF BREATH Physical Exam - Vital Signs Vital Signs: Vital Signs - Last 24 Hrs Temp Pulse Pulse Pulse Resp BP BP 01/17/19 07:55 72 20 01/17/19 04:24 98.7 F 82 16 120/82 01/16/19 23:16 98.0 F 77 16 140/90 01/16/19 23:14 78 16 01/16/19 17:08 78 18 01/16/19 17:00 99.0 F 87 18 128/75 01/16/19 13:00 97.9 F 81 16 148/91 Pulse Ox 01/17/19 07:55 01/17/19 04:24 94 L 01/16/19 23:16 99 01/16/19 23:14 96 01/16/19 17:08 99 01/16/19 17:00 98 01/16/19 13:00 93 L - General General Appearance: Alert, Oriented x3, Cooperative, No acute distress - Head Head exam: Atraumatic - Eye Eye exam: Normal appearance - ENT ENT exam: Mucous membranes moist - Neck Neck exam: Normal inspection - Respiratory Respiratory exam: Decreased breath sounds, Wheezes - Cardiovascular Cardiovascular Exam: Regular rate, Normal rhythm Peripheral Pulses: 2+: Radial (R), Radial (L), Dorsalis Pedis (R), Dorsalis Pedis (L) - GI/Abdominal GI/Abdominal exam: Normal bowel sounds Assessment and Plan - Assessment and Plan (1) Urinary retention Current Visit: Yes Status: Acute Base Code: R33.9 - RETENTION OF URINE, UNSPECIFIED Comment: 01/16/19 -S/P pain pump placement with spinal dilaudid bolus and infusion by Dr Kincaid -post op urinary retention req alvarez placement -Spoke with miguel Jacob to manage urinary retention for the next 24 hours, POC d/c with or without alvarez based on 24 ISC trial and increase in flomax from 0.4mg to 0.8mg (pt BP elevated and should tolerate the increase). Alvarez was removed 9am, pt not successful to urinate on his own yet. P to stand and attempt to urinate q2 hours while awake and ISC q 6 hours if bladder scan greater than 400cc. If after 24 hours, pt is not able to urinate on his own, alvarez will be replaced and pt will f/u with Dr Mclean outpt (this is his current urologist). PMH of BPH requiring TURP and 5 months of alvarez catheter placement after procedure. Care Coodinator to set up f/u for urology. Pt and updated with POC.
--- NOTE | 2019-01-17 19:41 | RADIOLOGY REPORT ---
EXAM: SPINE, 1 VIEW HISTORY: STATUS POST PUMP TRIAL. TECHNIQUE: Single frontal view of the thoracolumbar spine. COMPARISON: Spine radiograph from 05/08/2017. FINDINGS: New tubing is seen partially superimposing the left iliac wing, may represent component of pump device. Device otherwise difficult to localize due to additional overlying structures. Please refer to the operative report for additional details. Similar appearance of stimulator device since comparison study with leads in the lower thoracic region. Lower lumbar spine fusion hardware is present. Aortoiliac stent graft is noted as well. Multilevel lumbar degenerative changes with thoracolumbar levocurvature. IMPRESSION: ABOVE. JOB NUMBER: [id number] MTDD
== END 2019-01-17 11:01 | disposition home or self-care (01) ==
LOC: SUR 10:59 → MEDSURG 15:10
PROVIDERS: ADMIT Pain Medicine Interventional Pain Medicine; ATTEND Pain Medicine Interventional Pain Medicine
DX: M96.1 Postlaminectomy syndrome, not elsewhere classified (principal); M54.16 Radiculopathy, lumbar region; M54.17 Radiculopathy, lumbosacral region; I10 Essential (primary) hypertension; E78.00 Pure hypercholesterolemia, unspecified; J44.9 Chronic obstructive pulmonary disease, unspecified
CPT/HCPCS: 62350; 62362; 01936; 72020; 94640 ×6; 94664; G0378 ×3; J7512 ×3; J3010; J0690 ×2; J3490 ×4; J1170; J7040; J7613

== ENCOUNTER → 2019-01-21 | Day surgery (SDC) | payer BC ==
[~2019-01-21] MED LIST changes: -ACETAMINOPHEN 1,000 MG/100 ML BTL IV ONE; -CEFAZOLIN 2 Gram 2 GM/50 ML BAG IVPB ONE; -FAMOTIDINE 20MG TABLET PO ONE; +FENTANYL CITRATE/PF 5,000 MCG, BUPIVACAINE 0.5% PF 20 MG in 0.9 % SODIUM CHLORIDE 500ML... IJ ONE; +FENTANYL PF 100MCG/2ML VIAL IVP ONE; -HYDROMORPHONE PF 2MG/ML AMP 0.008 MG in 0.9 % SODIUM CHLORIDE 10ML VIA 0.996 ML IV ONE; -HYDROMORPHONE PF 2MG/ML AMP 8 MG in 0.9 % SODIUM CHLORIDE 500ML 496 ML IV ONE; -MECLIZINE 25 MG TABLET PO ONE; -METOCLOPRAMIDE 10 MG TABLET PO ONE
--- NOTE | 2019-01-21 08:01 | History and Physical - Ferro ---
CHIEF COMPLAINT/HISTORY OF CHIEF COMPLAINT: This patient presents with a history of post lumbar laminectomy syndrome with an intractable low back and leg pain. He is in progress with an implanted spinal catheter infusion trial using Hydromorphone. Because of side effects including itching as well as urinary retention he is here for a medication change. PAST MEDICAL HISTORY: Unchanged. PAST SURGICAL HISTORY: Unchanged. MEDICATIONS ON ADMISSION: List to be provided. FAMILY/PSYCHOSOCIAL HISTORY: Social history - Unchanged. Family history - Unchanged. SYSTEMS REVIEW: The patient is appropriate in no acute distress. PHYSICAL EXAMINATION: Unchanged. Evaluation shows the dressings for the implanted catheter trial to be intact. The external pump is currently off, but the connections are intact. NEUROLOGIC: Cranial nerves are intact. IMPRESSION: POST LUMBAR LAMINECTOMY SYNDROME, ICD-10 CODE M96.1 WITH RADICULOPATHY, ICD-10 CODE M54.16 AND M54.17. PLAN: The patient is here for a change of the medication from Dilaudid to Fentanyl and Bupivacaine. We will remove the dressings, reinforce the dressings and reinitiate the pump with the new infusion. The procedure will be considered outpatient. JOB NUMBER: [id number] [facility]
--- NOTE | 2019-01-29 05:52 | Operative Note - Ferro ---
DATE OF DICTATION: 01/28/2019. DATE OF EVALUATION AND PROCEDURE: 01/21/2019. PREOPERATIVE DIAGNOSIS: 1. POST LUMBAR LAMINECTOMY SYNDROME. 2. IMPLANTED SPINAL CATHETER INFUSION TRIAL WITH HYDROMORPHONE SIDE EFFECTS. POSTOPERATIVE DIAGNOSIS: 1. POST LUMBAR LAMINECTOMY SYNDROME. 2. IMPLANTED SPINAL CATHETER INFUSION TRIAL WITH HYDROMORPHONE SIDE EFFECTS. PROCEDURE: The patient was taken into the recovery area and the dressings were removed. The external catheter was removed and replaced. The infusion was changed from Dilaudid to fentanyl with bupivacaine. The dressings were replaced and the pump was restarted. The procedure was handled in the recovery area, not in the operating room. The patient tolerated the procedure without incident. DISCHARGE INSTRUCTIONS: The infusion of fentanyl and bupivacaine was started at a low dose. Dressings were all replaced. He will evaluate this over the next 24 to 48 hours. We will have the patient seen in the office within that period of time to evaluate the effects. JOB NUMBER: [id number] MTDD
== END | disposition home or self-care (01) ==
LOC: SUR 13:56
PROVIDERS: ATTEND Pain Medicine Interventional Pain Medicine
DX: M96.1 Postlaminectomy syndrome, not elsewhere classified (principal); T40.2X5A Adverse effect of other opioids, initial encounter
CPT/HCPCS: 62350; J3010; J7040

== ENCOUNTER 2019-01-28 09:54 | Day surgery (SDC) | payer BC ==
--- NOTE | 2019-01-28 04:53 | History and Physical - Ferro ---
DATE: 01/27/2019. CHIEF COMPLAINT/HISTORY OF CHIEF COMPLAINT: This patient presents with an implanted spinal catheter infusion trial currently infusing fentanyl and bupivacaine. This was changed from the previous use of Dilaudid because of side effects in the form of itching and urinary retention. The fentanyl and bupivacaine trial produced itching which became unmanageable. He is here for his second medication change with a third medication. PAST MEDICAL HISTORY: To be provided. PAST SURGICAL HISTORY: To be provided. MEDICATIONS ON ADMISSION: To be provided. ALLERGIES: To be provided. SOCIAL HISTORY: To be provided. FAMILY HISTORY: To be provided. SYSTEMS REVIEW: The patient seems appropriate and in no acute distress. PHYSICAL EXAMINATION: GENERAL: Height and weight not available. VITAL SIGNS: Not available. MUSCULOSKELETAL: The pain pattern is a post laminectomy radiculopathy. The dressing is inspected and is intact. IMPRESSION: 1. POSTLUMBAR LAMINECTOMY SYNDROME, ICD-10 CODE M96.1. 2. RADICULOPATHY ICD-10 CODE M54.16 AND M54.17. 3. IMPLANTED SPINAL CATHETER INFUSION TRIAL WITH FENTANYL AND BUPIVACAINE. PLAN: This patient is having side effects from the fentanyl and bupivacaine, and so we are changing it to morphine. His dressings were removed and the sites will be inspected. The external catheter will be removed and interfaced to a new catheter. The infusion will be restarted with morphine. The risks, side effects, and complications were reviewed. He will have five to seven more days with this trial. At that time should this medication fail, then the implanted catheter will be removed. The patient understands. JOB NUMBER: [id number] cc: Brittany Chambers
[~2019-01-28 09:54] MED LIST changes: -FENTANYL CITRATE/PF 5,000 MCG, BUPIVACAINE 0.5% PF 20 MG in 0.9 % SODIUM CHLORIDE 500ML... IJ ONE; -FENTANYL PF 100MCG/2ML VIAL IVP ONE; +MORPHINE SULFATE/PF 0.05 MG in 0.9 % SODIUM CHLORIDE 10ML VIA 0.95 ML IV ONE; +MORPHINE SULFATE/PF 10.4 MG in 0.9 % SODIUM CHLORIDE 500ML 489.6 ML IV ONE
--- NOTE | 2019-01-31 12:22 | Operative Note - Ferro ---
DATE OF SURGERY: 01/28/2019. PREOPERATIVE DIAGNOSIS: 1. POSTLUMBAR LAMINECTOMY SYNDROME, ICD-10 CODE M96.1. 2. RADICULOPATHY, ICD-10 CODE M54.16 AND M54.17. 3. IMPLANTED SPINAL CATHETER INFUSION TRIAL WITH FENTANYL AND BUPIVACAINE. POSTOPERATIVE DIAGNOSIS: 1. POSTLUMBAR LAMINECTOMY SYNDROME, ICD-10 CODE M96.1. 2. RADICULOPATHY, ICD-10 CODE M54.16 AND M54.17. 3. IMPLANTED SPINAL CATHETER INFUSION TRIAL WITH FENTANYL AND BUPIVACAINE. DESCRIPTION OF PROCEDURE: In the recovery room area, the dressings were removed. The implanted catheter external component was identified. The pump and spinal infusion of fentanyl and bupivacaine was then removed because of side effects. The external catheter was replaced. A new spinal infusion of morphine was then interfaced to the existing indwelling external catheter component. The dressings were then replaced, the pump was replaced, and the spinal infusion of morphine at 0.2 mg a day was started. The dressings had been replaced. The sites were inspected. The dressing change and bag change were performed under sterile technique without any problems. PLAN: This patient had side effects from the spinal infusion of Dilaudid and then had side effects from the spinal infusion of fentanyl and Bupivacaine. We are on the third and final drug which is morphine. It was started at a base rate of 0.2 mg per day. We will evaluate this over the next two to three days. If he does not have side effects, we will continue the infusion and perform an increase. He has seven days from the current date to either implant the pump or remove the implanted catheter component. When he was discharged and was stable and was having no side effects. JOB NUMBER: [id number] MTDD
== END 2019-01-28 13:46 | disposition home or self-care (01) ==
LOC: SUR 09:54
PROVIDERS: ATTEND Pain Medicine Interventional Pain Medicine
DX: M96.1 Postlaminectomy syndrome, not elsewhere classified (principal); M54.16 Radiculopathy, lumbar region; M54.17 Radiculopathy, lumbosacral region; T40.2X5A Adverse effect of other opioids, initial encounter
CPT/HCPCS: J7040

== ENCOUNTER 2019-02-04 10:25 | Day surgery (SDC) | payer BC ==
--- NOTE | 2019-02-04 06:42 | History and Physical - Ferro ---
CHIEF COMPLAINT/HISTORY OF CHIEF COMPLAINT: This patient is here completing an implanted spinal catheter infusion trial with multiple medications and in fact the initial trial started with Dilaudid, the side effect was itching as well as urinary retention. It was changed to Fentanyl and Bupivacaine which resulted in itching, this was changed to Morphine which resulted in itching. Due to the failure with three separate drugs we are considering the implanted catheter trial to be unsuccessful and he is here for removal of the system. PAST MEDICAL HISTORY: Unchanged. PAST SURGICAL HISTORY: Unchanged. MEDICATIONS ON ADMISSION: List to be provided. ALLERGIES: ASA, NSAIDS, DILAUDID, AND FENTANYL. FAMILY/PSYCHOSOCIAL HISTORY: Social history - Unchanged. Family history - Unchanged. SYSTEMS REVIEW: The patient is appropriate in no acute distress. PHYSICAL EXAMINATION: Height and weight are unchanged. Vital signs are not available. HEENT: Within normal limits. LUNGS: Clear. HEART: Rapid and regular rate. ABDOMEN: Nontender. MUSCULOSKELETAL: Examination of the musculoskeletal system shows the dressings for the implanted catheter trial to still be intact. The externalized pump and the externalized catheter are intact. The pump is currently off. NEUROLOGIC: Cranial nerves are intact. IMPRESSION: 1. POST LUMBAR LAMINECTOMY SYNDROME, ICD-10 CODE M96.1 WITH RADICULOPATHY, ICD- 10 CODE M54.16 AND M54.17. 2. IMPLANTED SPINAL CATHETER INFUSION TRIAL OF HYDROMORPHONE, UNSUCCESSFUL. PLAN: The patient is here for removal of the implanted catheter on an outpatient basis. JOB NUMBER: [id number] MTDD
[~2019-02-04 10:25] MED LIST changes: +ACETAMINOPHEN 1,000 MG/100 ML BTL IV ONE; +CEFAZOLIN 2 Gram 2 GM/50 ML BAG IVPB ONE; +FAMOTIDINE 20MG TABLET PO ONE; +MECLIZINE 25 MG TABLET PO ONE; +METOCLOPRAMIDE 10 MG TABLET PO ONE; -MORPHINE SULFATE/PF 0.05 MG in 0.9 % SODIUM CHLORIDE 10ML VIA 0.95 ML IV ONE; -MORPHINE SULFATE/PF 10.4 MG in 0.9 % SODIUM CHLORIDE 500ML 489.6 ML IV ONE
[2019-02-04] MEDS ORDERED: CEFAZOLIN 1G VIAL IM ONE (10:26)
[2019-02-04] MEDS ORDERED: PROPOFOL 10 MG/ML VIAL IV ONE (10:26)
[2019-02-04] MEDS ORDERED: MIDAZOLAM HCL 2MG/2ML VIAL IV ONE (10:26)
[2019-02-04] MEDS ORDERED: HYDROCODONE/APAP 7.5/325MG TABLET PO ONE (10:26)
[2019-02-04] MEDS ORDERED: LIDOCAINE 2% MDV (20MG/ML) 20ML VIAL IV ONE (10:26)
--- NOTE | 2019-02-09 06:04 | Operative Note ---
DATE: 02/04/2019. PRIMARY CARE PHYSICIAN: Favian Bone D.O. PREOPERATIVE DIAGNOSES: 1. POSTLUMBAR LAMINECTOMY SYNDROME, ICD-10 CODE M96.1. 2. RADICULOPATHY, ICD-10 CODE M54.16 AND M54.17. 3. IMPLANTED SPINAL CATHETER INFUSION TRIAL UNSUCCESSFUL. POSTOPERATIVE DIAGNOSES: 1. POSTLUMBAR LAMINECTOMY SYNDROME, ICD-10 CODE M96.1. 2. RADICULOPATHY, ICD-10 CODE M54.16 AND M54.17. 3. IMPLANTED SPINAL CATHETER INFUSION TRIAL UNSUCCESSFUL. PROCEDURES: 1. Fluoroscopically guided incision, subcutaneous dissection, and removal of indwelling spinal catheter. 2. Incision, subcutaneous dissection, and removal of external catheter with connector. 3. Closure of incisions with Vicryl for the fascia and williams for the skin. SURGEON: Neo Kincaid D.O. ANESTHESIA: Local sedation. ANESTHESIA PROVIDER: Twan Cueva CRNA. INDICATIONS: This patient presents with a history of intractable lumbar radiculopathy. He had an implanted catheter infusion trial with hydromorphone which produced side effects. The medication was changed to fentanyl and bupivacaine. He had side effects with this, and the medication was changed to morphine with which he again had side effects. Due to the failure of therapy with all three available medications for spinal infusion, he is here for removal of the catheter subsequent to a failed trial. DESCRIPTION OF PROCEDURE: Intravenous lines, vital sign monitoring, and intravenous sedation. Prepped and draped with sterile technique with the patient prone. The midline incision for the implanted catheter was infiltrated. An incision was made and subcutaneous dissection was conducted. The anchor suture was removed and the spinal catheter was removed. A pursestring suture was placed to stop cerebrospinal fluid leak at the penetration point. The radiopaque bead was identified at the tip of the catheter and was removed. Under imaging no catheter components remained. At the left posterior gluteal margin, an interface for an indwelling external catheter combination was infiltrated. An incision was made and subcutaneous dissection was conducted to the connector. The connector was removed and cut. The external catheter was removed by pulling away from the skin and away from the incision. Antibiotic irrigation and Bovie for hemostasis. Both incisions were closed using Vicryl for fascia and williams for the skin. Appropriate dressings were placed. He was transported to the recovery room stable with no side effects from the procedure or the sedate. When fully awake and alert he was prepared for discharge. DISCHARGE INSTRUCTIONS: 1. The sites are to remain clean and dry. No showering or bathing in any way that would disrupt dressings. 2. Standard medications to be resumed including Levaquin the antibiotic for seven more days and then discontinue this. 3. The office is to contact the patient in the next several days to set up a time in 7 to 10 days for us to evaluate the incision. Until then he is to keep his activities controlled. 4. All other instructions were provided including numbers to contact with problems. He was then discharged. JOB NUMBER: [id number] cc: Brittany Chambers
== END 2019-02-04 13:09 | disposition home or self-care (01) ==
LOC: SUR 10:25
PROVIDERS: ATTEND Pain Medicine Interventional Pain Medicine
DX: M96.1 Postlaminectomy syndrome, not elsewhere classified (principal); M54.16 Radiculopathy, lumbar region; M54.17 Radiculopathy, lumbosacral region; I10 Essential (primary) hypertension; E78.00 Pure hypercholesterolemia, unspecified; J44.9 Chronic obstructive pulmonary disease, unspecified; J45.909 Unspecified asthma, uncomplicated
CPT/HCPCS: 62355; 00300; J0690

== ENCOUNTER 2019-04-01 09:28 | Day surgery (SDC) | payer BC ==
--- NOTE | 2019-04-01 08:11 | History and Physical - Ferro ---
CHIEF COMPLAINT/HISTORY OF CHIEF COMPLAINT: This patient presents with a history of post lumbar laminectomy radiculopathy. Due to the failure of therapy, a spinal cord stimulator implant was performed on 05/08/17. The system at that time MRI incompatible because the limited number of electrodes we are unable to extend stimulation patterns beyond the initial area of his pain which has been extending since the time of implant. He was evaluated for an implanted spinal catheter infusion trial for possible pump, but had adverse reactions to all three medications used during the trial period and for that reason it was felt he was not a pump candidate. The recommendation for MRI incompatible system was evaluated by the patient through his neurosurgeon and although his neurosurgeon had suggested MRI compatibility was appropriate the patient had indicated that he preferred we try changing his system to the full sixteen electrode WaveWriter components which are all MRI compatible. Understanding that this would eliminate the potential for MRI's. He evaluated his options and after discussion with family opted to change the system and move towards MRI incompatibility. PAST MEDICAL HISTORY: Chronic peripheral vascular disease, abdominal aortic aneurysm, and intractable post lumbar laminectomy pain. PAST SURGICAL HISTORY: Skin cancer, aneurysm repair, hernia repair, lumbar spinal fusion, cataract surgery, coronary artery stent placement. MEDICATIONS ON ADMISSION: List to be provided. ALLERGIES: NAPROXEN, ASPIRIN AND ADVIL. FAMILY/PSYCHOSOCIAL HISTORY: Family history - Noncontributory. Social history - Noncontributory. SYSTEMS REVIEW: The patient is appropriate in no acute distress. PHYSICAL EXAMINATION: Height is 5'4", weight is 130. No vital signs. HEENT: Within normal limits. LUNGS: Clear. HEART: Rapid and regular. ABDOMEN: Nontender. MUSCULOSKELETAL: Examination of the musculoskeletal system shows the incisional site for the leads at T11-T12 and T10-T11. A generator incision is noted at the right flank. All incisions are intact. NEUROLOGIC: Cranial nerves are intact. His primary pain pattern is low back bilateral legs, somewhat more left than right. Motor and sensory field function shows weakness and sensory loss. Ambulation - No assistive device utilized. IMPRESSION: 1. POST LUMBAR LAMINECTOMY SYNDROME, ICD-10 CODE M96.1 WITH RADICULOPATHY, ICD- 10 CODE M54.16 AND M54.17. 2. SPINAL CORD STIMULATOR INTERNAL GENERATOR NONFUNCTIONAL. PLAN: He is here for swap and removal of the internal stimulatory and generator to a new sixteen electrode WaveWriter system. The procedure will be considered an overnight stay although an outpatient status can be evaluated. JOB NUMBER: [id number] MTDD
[~2019-04-01 09:28] MED LIST changes: -ACETAMINOPHEN 1,000 MG/100 ML BTL IV ONE; +ACETAMINOPHEN 1,000 MG/100 ML BTL IVPB ONE; +CEFAZOLIN 1G VIAL IVP ONE; -CEFAZOLIN 2 Gram 2 GM/50 ML BAG IVPB ONE; +WATER STERILE FOR INJECTION 20 ML VIAL MC ONE
[2019-04-01] MEDS ORDERED: PROPOFOL 10 MG/ML VIAL IV ONE (09:29)
[2019-04-01] MEDS ORDERED: MIDAZOLAM HCL 2MG/2ML VIAL IV ONE (09:29)
[2019-04-01] MEDS ORDERED: LIDOCAINE 2% MDV (20MG/ML) 20ML VIAL IV ONE (09:29)
[2019-04-01] MEDS ORDERED: KETAMINE HCL 100MG/1ML VIAL INJ ONE (09:29)
[2019-04-01] MEDS ORDERED: RINGERS SOLUTION,LACTATED 1,000 ML IV ONE ×2 (12:08→13:00)
[2019-04-01] MEDS ORDERED: LIDOCAINE 1% W/EPI 1:100,000 MDV 20 ML VIAL SQ ONE ×2 (12:35)
[2019-04-01] MEDS ORDERED: BUPIVACAINE 0.5% W/EPI MPF 30 ML VIAL SQ ONE ×2 (12:35)
[2019-04-01] MEDS ORDERED: HYDROCODONE/APAP 7.5/325MG TABLET PO ONE (14:19)
[2019-04-01] MEDS ORDERED: ALPRAZOLAM 0.25 MG TABLET PO PRN (14:40)
[2019-04-01] MEDS ORDERED: ALBUTEROL HFA 8 GM INHALER INH PRN (14:42)
[2019-04-01] MEDS ORDERED: SENNOSIDES/DOCUSATE SODIUM UD CAPSULE PO PRN ×2 (14:45)
[2019-04-01] MEDS ORDERED: METOCLOPRAMIDE HCL 10 MG/2 ML VIAL IVP PRN (14:45)
[2019-04-01] MEDS ORDERED: HYDROMORPHONE HCL 2 MG/ML VIAL IM PRN ×2 (14:45)
[2019-04-01] MEDS ORDERED: TEMAZEPAM 15 MG CAPSULE PO PRN ×2 (14:45)
[2019-04-01] MEDS ORDERED: OXYCODONE/APAP 10MG-325MG TABLET PO PRN (14:45)
[2019-04-01] MEDS ORDERED: AL HYDROX/MAG HYDROX 30ML UD PO PRN (14:45)
[2019-04-01] MEDS ORDERED: DIPHENHYDRAMINE HCL 50 MG/ML VIAL IVP PRN ×2 (14:45)
[2019-04-01] MEDS ORDERED: DIPHENHYDRAMINE HCL 25 MG CAPSULE PO PRN ×2 (14:45)
[2019-04-01] MEDS ORDERED: ACETAMINOPHEN 325 MG TAB PO PRN ×2 (14:45)
[2019-04-01] MEDS ORDERED: METOCLOPRAMIDE 10 MG TABLET PO PRN (14:45)
[2019-04-01] MEDS ORDERED: HYDROCODONE/APAP 7.5/325MG TABLET PO PRN ×2 (14:45)
[2019-04-01] MEDS: LISINOPRIL 10 MG TABLET PO SCH (15:51)
[2019-04-01] MEDS: OXYCODONE/APAP 10MG-325MG TABLET PO PRN ×2 (17:34→22:00)
[2019-04-01] MEDS: CEFAZOLIN 1G VIAL IVP SCH (20:15)
[2019-04-01] MEDS: 0.9 % SODIUM CHLORIDE 10ML SYR IVP SCH ×2 (20:16→22:01)
[2019-04-01] MEDS ORDERED: ATORVASTATIN 20 MG TABLET PO SCH (22:00)
[2019-04-01] MEDS ORDERED: SERTRALINE HCL 50 MG TABLET PO SCH (22:00)
[2019-04-01] MEDS ORDERED: TAMSULOSIN HCL 0.4 MG CAP.ER.24H PO SCH (22:00)
[2019-04-01] MEDS: ALBUTEROL SULFATE (0.083%) 2.5 MG/3 ML NEB INH SCH (22:07)
[2019-04-02] MEDS: OXYCODONE/APAP 10MG-325MG TABLET PO PRN ×2 (02:18→06:25)
[2019-04-02] MEDS: CEFAZOLIN 1G VIAL IVP SCH (04:57)
[2019-04-02] MEDS: ALBUTEROL SULFATE (0.083%) 2.5 MG/3 ML NEB INH SCH ×2 (05:39→10:39)
[2019-04-02] MEDS ORDERED: PREDNISONE 10 MG TAB PO SCH (10:00)
[2019-04-02] MEDS: LISINOPRIL 10 MG TABLET PO SCH (10:41)
--- NOTE | 2019-04-03 08:50 | Operative Note ---
DATE OF SURGERY: 04/01/2019 PREOPERATIVE DIAGNOSIS: Post lumbar laminectomy syndrome ICD-10 code M96.1 with radiculopathy ICD-10 code M54.16 and M54.17. OPERATION: 1. Fluoroscopic-guided incision and subcutaneous dissection removal of implanted spinal cord stimulators x2. 2. Incision subcutaneous dissection and removal of internal pulse generator for 2 stimulators, right flank. 3. Fluoroscopic-guided left epidural access T11-12, placement of spinal cord stimulator lead 1 [employer] Infin[employer] 16, 6 electrodes positioned left T8. 4. Fluoroscopic-guided epidural access right T11-12, placement of spinal cord stimulator lead 2, a [employer] Infinion 16, 6 electrodes positioned right T8. 5. Using previous incisional pouch, anchoring of lead 1 and lead 2 to supraspinous fascia with a [employer] locking anchor. 6. Tunneling 2 leads external portion into right flank pouch previously formed, interface lead 1 and lead 2 to new generator, identified as a STARFACE programmable rechargeable WaveWriter. 7. Antibiotic irrigation with Bovie hemostasis. Closure of both incisions using Stratafix suture, 2-0 fascia, 3-0 skin, Dermabond closure. 8. Complex recovery room programming internal generator, home use 2 stimulators, 20 minutes. SURGEON: Neo Kincaid D.O. ANESTHESIA: Local sedation. ANESTHESIA PROVIDER: Priscilla Ch. INDICATION: This patient presents with a history of intractable post lumbar laminectomy radiculopathy. Due to the failure of therapies and an initial successful trial of a spinal cord stimulator with 2 leads, MRI-compatible 8- electrode x2 with internal generator placed. Initially, this appeared to be doing quite well with respect to his pain. Unfortunately, over a very brief period of time, his pain escalated, extended moving lower and higher into his spine and legs. This 8 electrode system was unable to be programmed to account for the new areas of pain. After discussion with his primary, his surgeon, and his treating physicians, it was decided that MRI-compatibility could be compromised in favor of pain control. At that point, we opted to remove the 2 8-electrode leads, implant with 2 16-electrode leads, remove the internal generator and replace with a new WaveWriter technology, which would provide greater programmability. PROCEDURE: Intravenous line, vital sign monitoring, IV sedation by anesthesia. The patient was positioned prone. Sterile prep and sterile technique. The previous incision for the leads was infiltrated, incision was made, and subcutaneous dissection was conducted to the leads and the anchor suture cut. The leads and anchor were removed intact. The generator pouch at the right flank, incision was made, and subcutaneous dissection was conducted to remove the generator and its connection to the leads. Antibiotic irrigation and Bovie for hemostasis. Two standard epidural needles/resistance were then used to access the epidural space at T11-12, which was the previous incision; one left and one right of the midline. The epidural space was accessed atraumatically without blood and no CSF. On the left, spinal cord stimulator lead 1, a [employer] Infinion 16, 6 electrodes was advanced and positioned left of the midline at T8. With the access on the right, spinal cord stimulator lead 2, a [employer] Infinion 16, 6 electrodes was positioned right of midline with the electrodes at T8. Complex programming with the patient awake of lead 1 over 20 minutes and lead 2 over 20 minutes, resulting in complete pattern stimulation higher into the back and all the way into his feet. The patient indicating we had all the areas we previously were missing. He was given the option to implant or remove. He opted to implant. The question was repeated with the same response. He was re-sedated. With the pouches already formed by the removal of both systems, lead 1 and lead 2 were anchored to the supraspinous fascia with the [employer] locking anchor nonabsorbable suture. The right flank pouch was then utilized. A tunneling tool was used to carry both lead1 and lead 2 into the generator pouch and then each lead was interfaced with the STARFACE WaveWriter generator programmable rechargeable. Antibiotic irrigation and Bovie hemostasis. The leads were placed in the pouch. The generator placed in the pouch and then both incisions were closed using Stratafix suture, 2-0 fascia, and 3-0 skin. Dermabond closure approximated the edges of both wounds. He was then transported to the recovery room stable. No side effects from the procedure or the sedation. He had tolerated the procedure without difficulty. He had full functionality of the extremities, no unusual pain. He will be kept overnight for observation and discharge in the morning. DISCHARGE INSTRUCTIONS: 1. The sites will remain clean and dry, no showering or bathing, although the Dermabond will allow showering, he cannot sit in water. 2. Standard medications resumed. He will start Levaquin the antibiotic, 500 mg once a day for 14 days. 3. The office to contact the patient in 12 to 24 hours to set up a time in 7 to 10 days to evaluate his sites. Until then, he is to keep his activities low. 4. All other instructions were provided, numbers to contact if problems given. He was then discharged. CC: Dr. Favian ULRICH
--- NOTE | 2019-04-03 15:09 | RADIOLOGY REPORT ---
DATE: 04/01/2019. EXAM: SINGLE-VIEW SPINE RADIOGRAPH. HISTORY: STIMULATOR REVISION. TECHNIQUE: Single frontal view of the thoracolumbar spine. COMPARISON: Spine radiograph dated 01/14/2019. FINDINGS: Apparent interval revision of spinal stimulator, leads now superimposing the T8 through T11 vertebral levels. Stimulator generator superimposes the right mid abdomen. Partial visualization of an aortic stent graft and lumbar fusion hardware. Please see operative report for additional details. IMPRESSION: ABOVE. Job Number: [id number] [facility]
== END 2019-04-02 11:05 | disposition home or self-care (01) ==
LOC: SUR 09:28 → MEDSURG 14:44 → SUR 04-02 11:05
PROVIDERS: ATTEND Pain Medicine Interventional Pain Medicine
DX: M96.1 Postlaminectomy syndrome, not elsewhere classified (principal); M54.16 Radiculopathy, lumbar region; M54.17 Radiculopathy, lumbosacral region; I10 Essential (primary) hypertension; E78.00 Pure hypercholesterolemia, unspecified; J44.9 Chronic obstructive pulmonary disease, unspecified
CPT/HCPCS: 63663; 63685; 01936; 95972; 72020; 94640 ×2; J7512; J3490 ×2; C1820; C1883; J0690; J7120; J7613